=== PATIENT | female | born 1965 | race Caucasian/White ===

== ENCOUNTER → 2023-01-27 | Outpatient (CLI) | payer BC ==
--- NOTE | 2023-01-27 08:29 | MM ---
Reason for Exam: Screening (asymptomatic). Last mammogram was performed 10 year(s) and 2 month(s) ago. Patient History: Menarche at age 13. Patient has no children. Perimenopausal. Hormonal Contraceptives for 12 years from age 17 until age 29. Risk Values: Tara 5 year model risk: 1.4%. NCI Lifetime model risk: 8.7%. Prior Study Comparison: 04/01/2010 Bilateral Diagnostic Mammogram, [facility]. 08/03/2011 Bilateral Screening Mammogram, [facility]. 12/05/2012 Bilateral Screening Mammogram, [facility]. Tissue Density: The breast tissue is heterogeneously dense. This may lower the sensitivity of mammography. Findings: Analyzed By CAD. There is no suspicious group of microcalcifications or new suspicious mass in either breast. Overall Assessment: Negative, BI-RAD 1 Management: Screening Mammogram of both breasts in 1 year. A clinical breast exam by your physician is recommended on an annual basis and results should be correlated with mammographic findings. [facility] will attempt to contact patient to return for supplemental views and ultrasound if indicated. Electronically signed and approved by: Cooper Gómez DO
== END | disposition home or self-care (01) ==
LOC: RADMAMWWP 07:02
PROVIDERS: ATTEND Family Medicine
DX: Z12.31 Encounter for screening mammogram for malignant neoplasm of breast (principal)
CPT/HCPCS: 77067

== ENCOUNTER → 2024-03-21 | Outpatient (CLI) | payer BC ==
--- NOTE | 2024-03-21 13:26 | MM ---
Reason for Exam: Screening (asymptomatic). Last mammogram was performed 1 year(s) and 2 month(s) ago. Patient History: Menarche at age 13. Patient has no children. Postmenopausal. Hormonal Contraceptives for 12 years from age 17 until age 29. Risk Values: Tara 5 year model risk: 1.5%. NCI Lifetime model risk: 8.5%. Prior Study Comparison: 08/03/2011 Bilateral Screening Mammogram, [facility]. 12/05/2012 Bilateral Screening Mammogram, [facility]. 01/27/2023 Bilateral MG screening mammo w CAD, [facility]. Tissue Density: The breasts are extremely dense, which lowers the sensitivity of mammography. Findings: Analyzed By CAD. Right breast: There is no suspicious group of microcalcifications or new suspicious mass. Left breast: There is no suspicious group of microcalcifications or new suspicious mass. Overall Assessment: Negative, BI-RAD 1 Management: Screening Mammogram of both breasts in [address] [facility] will attempt to contact patient to return for supplemental views and ultrasound if indicated. Patient should continue monthly self-breast exams. A clinical breast exam by your physician is recommended on an annual basis. This exam should not preclude additional follow-up of suspicious palpable abnormalities. Note on Tara scores and lifetime risk: 1. A Tara score greater than 3% is considered moderate risk. If this is the case, consider specialist referral to assess eligibility for a risk reducing agent. 2. If overall lifetime risk for the development of breast cancer is 20% or higher, the patient may qualify for future screening with alternating mammogram and breast MRI. Electronically signed and approved by: Cooper Gómez DO
== END | disposition home or self-care (01) ==
LOC: RADMAMWWP 06:51
PROVIDERS: ATTEND Family Medicine
DX: Z12.31 Encounter for screening mammogram for malignant neoplasm of breast (principal); Z78.0 Asymptomatic menopausal state
CPT/HCPCS: 77063; 77067

== ENCOUNTER → 2024-03-22 | Outpatient (CLI) | payer BC ==
[2024-03-22 11:03] LABS: Basophils # (A) 0.04 X 10*3/uL (0.00-0.10); Basophils % (A) 0.8 %; HCT 43.6 % (37.2-46.3); HGB 14.3 g/dL (12.0-15.0); Lymphocytes # (A) 1.37 X 10*3/uL (0.90-5.00); Lymphocytes % (A) 27.9 %; MCH 28.1 pg (27.0-32.0); MCHC 32.8 g/dL (32.0-37.0); MCV 85.7 FL (80.0-97.0); Monocytes # (A) 0.36 X 10*3/uL (0.20-1.00); Monocytes % (A) 7.3 %; NRBC Per 100 WBC 0 X 10*3/uL (0.00-0.01); Neutrophils # (A) 3.03 X 10*3/uL (1.80-7.70); Neutrophils % (A) 61.8 %; Platelet Count 261 X 10*3/uL (140-440); RBC 5.09 X 10*6/uL (4.10-5.20); RDW 13.3 % (11.5-14.5); WBC 4.91 X 10*3/uL (4.50-10.00)
[2024-03-22 11:16] LABS: ALT 11 U/L (8-44); AST 20 U/L (13-35); Albumin 4.6 g/dL (3.8-4.9); Alkaline Phosphatase 82 U/L (41-126); Blood Urea Nitrogen 12.7 mg/dL (9.0-27.0); Calcium 9.7 mg/dL (8.7-10.3); Carbon Dioxide 23.2 mmol/L (21.6-31.8); Chloride 105 mmol/L (96-109); Chol/HDL Ratio 3.72 Ratio; Globulin 2.3 g/dL (1.6-3.3); Glucose 88 mg/dL (70-110); LDL Cholesterol,Calculated 124.8 mg/dL (0.0-131.0); Potassium 4.1 mmol/L (3.5-5.5); Sodium 139 mmol/L (135-145); Total Bilirubin 0.5 mg/dL (0.3-1.2); Total Protein 6.9 g/dL (6.2-8.2)
== END | disposition home or self-care (01) ==
LOC: LABWHC1 07:35
PROVIDERS: ATTEND Family Medicine
DX: I26.99 Other pulmonary embolism without acute cor pulmonale (principal)
CPT/HCPCS: 36415; 80053; 80061; 85025

== ENCOUNTER → 2025-04-07 | Outpatient (CLI) | payer BC ==
--- NOTE | 2025-04-07 11:21 | MM ---
Reason for Exam: Screening (asymptomatic). Last screening mammogram was performed 12 month(s) ago. Patient History: Menarche at age 13. Patient has no children. Postmenopausal. Hormonal Contraceptives for 12 years from age 17 until age 29. Risk Values: Tara 5 year model risk: 1.5%. NCI Lifetime model risk: 8.3%. Prior Study Comparison: 12/05/2012 Bilateral Screening Mammogram, [facility]. 01/27/2023 Bilateral MG screening mammo w CAD, [facility]. 03/21/2024 Bilateral MG 3D screening mammo w/cad, [facility]. Tissue Density: The breasts are heterogeneously dense, which may obscure small masses. Findings: Analyzed By CAD. Right breast: Grouped calcifications right upper outer quadrant 7-8 cm from the nipple. Left breast: There is no suspicious group of microcalcifications or new suspicious mass. Overall Assessment: Incomplete: need additional imaging evaluation, BI-RAD 0 Management: Diagnostic Mammogram of the right breast. Spot compression magnification views of the right upper outer quadrant on CC and MLO view. [facility] will attempt to contact patient to return for supplemental views and ultrasound if indicated. Patient should continue monthly self-breast exams. A clinical breast exam by your physician is recommended on an annual basis. This exam should not preclude additional follow-up of suspicious palpable abnormalities. Note on Tara scores and lifetime risk: 1. A Tara score greater than 3% is considered moderate risk. If this is the case, consider specialist referral to assess eligibility for a risk reducing agent. 2. If overall lifetime risk for the development of breast cancer is 20% or higher, the patient may qualify for future screening with alternating mammogram and breast MRI. [facility], , 04/07/2025 11:18 AM. Electronically signed and approved by: Cooper Gómez DO
== END | disposition home or self-care (01) ==
LOC: RADMAMWWP 09:58
PROVIDERS: ATTEND Obstetrics & Gynecology
DX: Z12.31 Encounter for screening mammogram for malignant neoplasm of breast (principal); R92.333 Mammographic heterogeneous density, bilateral breasts; R92.1 Mammographic calcification found on diagnostic imaging of breast; Z78.0 Asymptomatic menopausal state; Z92.0 Personal history of contraception
CPT/HCPCS: 77063; 77067

== ENCOUNTER → 2025-04-10 | Outpatient (CLI) | payer BC ==
--- NOTE | 2025-04-10 08:20 | MM ---
Reason for Exam: Additional evaluation requested from abnormal screening. Last screening mammogram was performed less than 1 month ago. Patient History: Menarche at age 13. Patient has no children. Postmenopausal. Hormonal Contraceptives for 12 years from age 17 until age 29. Risk Values: Tara 5 year model risk: 1.5%. NCI Lifetime model risk: 8.3%. Tissue Density: Right: The breasts are heterogeneously dense, which may obscure small masses. Findings: Analyzed By CAD. Grouped calcifications right breast superior aspect are CC mag view 10 cm from the nipple in the lateral aspect. On magnetic ML view this is thought to be superior approximately 9.0 cm nipple. Biopsy this. Additional grouped stations is more inferiorly are thought to represent milk of calcium calcifications. Lastly calcifications are best appreciated on ML view posterior depth are also present. These are located 10.0 cm in the nipple. Biopsy this. Overall Assessment: Highly suggestive of malignancy, BI-RAD 5 Management: Stereotactic Core Biopsy of the right breast. 2 site biopsy including the superior aspect on ML view as well as the more posterior group medications. The more inferior group calcifications is thought to represent milk of calcium. Results were given to the patient verbally at the time of exam. Patient should continue monthly self-breast exams. A clinical breast exam by your physician is recommended on an annual basis. This exam should not preclude additional follow-up of suspicious palpable abnormalities. Note on Tara scores and lifetime risk: 1. A Tara score greater than 3% is considered moderate risk. If this is the case, consider specialist referral to assess eligibility for a risk reducing agent. 2. If overall lifetime risk for the development of breast cancer is 20% or higher, the patient may qualify for future screening with alternating mammogram and breast MRI. [facility], , 04/10/2025 8:17 AM. Electronically signed and approved by: Cooper Gómez DO
== END | disposition home or self-care (01) ==
LOC: RADMAMWWP 07:23
PROVIDERS: ATTEND Obstetrics & Gynecology
DX: R92.8 Other abnormal and inconclusive findings on diagnostic imaging of breast (principal); R92.331 Mammographic heterogeneous density, right breast; Z78.0 Asymptomatic menopausal state; Z92.0 Personal history of contraception
CPT/HCPCS: 77061; 77065

== ENCOUNTER → 2025-04-24 | Day surgery (SDC) | payer BC ==
[~2025-04-24] MED LIST: ALPRAZolam 0.5 MG TAB PO PRN
[2025-04-24 10:14] VITALS: RESP 16; TEMP 98.1
[2025-04-24 11:24] VITALS: BP 113/78; PULSE 61
--- NOTE | 2025-05-07 10:00 | MM ---
Risk Values: Tara 5 year model risk: 1.5%. NCI Lifetime model risk: 8.3%. Prior Study Comparison: 03/21/2024 Bilateral MG 3D screening mammo w/cad, [facility]. 04/07/2025 Bilateral MG 3D screening mammo w/cad, [facility]. 04/10/2025 Right MG 3D work up w/cad RT, [facility]. Pathology Description: Marker Left Behind. Specimen Radiograph. Calcium Found: Yes Approach: Lateral to Medial Needle Type: Eviva Cores: 13 Skin Nicks: 1 Gauge: 9 The procedure of stereotactic guided core biopsy was explained to the patient. Benefits, alternatives, and risks were discussed. An informed consent was then obtained. The shortness pathway for biopsy was chosen. Shortness pathway was lateral to medial approach. A vacuum assisted biopsy gun was used to obtain multiple core samples. The first sample did not show calcifications. Second sample only shows a few calcifications. The petite needle was used due to peripheral location. The patient tolerated the procedure well without any immediate complication. The patient was kept in the radiology department for short stay after the procedure and then discharged home in stable condition. A few targeted calcifications are identified in second specimen mammogram. Patient was taken to a dedicated mammography suite for post procedure clip placement verification. Post biopsy mammogram shows the clip to appear in satisfactory position relative to the targeted area of concern on the preprocedure images; the most suspicious group of calcifications. Impression: UNCOMPLICATED STEREOTACTIC GUIDED CORE BIOPSY OF AREA OF CONCERN IN THE RIGHT BREAST. I would consider repeat sampling of this or another nearby group of calcifications if the pathology results are benign. PATHOLOGY STATUS: [facility], , 04/24/2025 12:18 PM. Pathology Results: RIGHT BREAST, STEREOTACTIC NEEDLE CORE BIOPSY: Benign breast with fibrocystic changes. See note. Notes X-rays performed on the tissue blocks following multiple levels examined revealed no identifiable calcifications within the tissue blocks. Management: Repeat Procedure of the right breast. Electronically signed and approved by: Sid Braun M.D.
== END ==
LOC: RADMAMWWP 09:49
PROVIDERS: ATTEND Surgery
DX: R92.8 Other abnormal and inconclusive findings on diagnostic imaging of breast (principal)
CPT/HCPCS: 88305; 19081; J2003